=== PATIENT | male | born 1965 | race Caucasian/White ===

== ENCOUNTER 2022-04-12 17:43 | Emergency (ER) | payer OTHER, SELFPAY ==
--- NOTE | 2022-04-12 17:44 | ED.EYEPROB ---
HPI - Eye Problem General Chief complaint: Eye Problems Stated complaint: Right eye injury WC Time Seen by Provider: 04/12/22 17:44 Source: patient and RN notes reviewed History of Present Illness HPI Narrative: Patient is a 56-year-old male who presents the urgent care with complaints of right eye foreign body/injury. Patient states that he was fixing a tile in the ceiling at work and believes he may have got dust in his eye. Patient states that occurred around 5:15 PM. States that he rinsed it with water, saline and use the eyewash station at work. Patient states he still feels something rough in the eye . Patient states he is having difficulty opening the eye due to the pain. No other acute complaints. No acute distress noted. Patient aware of the plan of care. Some parts of this dictation were generated by voice recognition software and may contain typographical and/or grammatical inaccuracies. Related Data Allergies Allergy/AdvReac Type Severity Reaction Status Date / Time No Known Allergies Allergy Verified 04/12/22 18:04 Review of Systems Review of Systems: CONSTITUTIONAL: Denies fever, chills, or sweats. EYES: Reports of right eye pain, redness, drainage and possible foreign body ENT: Denies rhinorrhea, congestion, sore throat, or otalgia. CARDIOVASCULAR: Denies chest pain, palpitations, or edema. RESPIRATORY: Denies cough or dyspnea. GASTROINTESTINAL: Denies abdominal pain, nausea, vomiting, or diarrhea. GENITOURINARY: Denies dysuria or hematuria. SKIN: Denies rash or itching. MUSCULOSKELETAL: Denies back pain, joint pain, or myalgia. NEUROLOGIC: Denies headache, numbness, or weakness. All other systems reviewed are negative, except as documented in HPI. PMFSH Comments At the time of my signature, I reviewed and agree with the nursing past medical, surgical, social, and family history. There is no relevant family history pertinent to the patient complaint. Exam Narrative: GENERAL: This is a well-nourished, well-developed patient, in no apparent distress. HEAD: normocephalic, atraumatic. EYES: PERRL. Moderately injected conjunctive a on the right with injected/erythemic right sclera without obvious injury. No obvious foreign body to the right eye. Clear watery drainage from the right eye. Left sclera clear/white. Vision is grossly intact. EARS: External ears normal NOSE: External nose normal with no obvious nasal discharge, nares without redness, no rhinorrhea. THROAT: Mucous membranes moist, posterior pharynx clear. NECK: Neck supple SKIN: warm, intact with no suspicious lesions or rash, good texture and turgor. NEURO: awake, alert, and oriented to person, place and time. There were no obvious focal neurologic abnormalities. EXTREMITIES: No clubbing, cyanosis, or edema. Course Course Level of Care: Express Care Visit Vital Signs Vital signs: Vital Signs Temperature 97.4 F L 04/12/22 17:52 Pulse Rate 72 04/12/22 17:52 Respiratory Rate 20 04/12/22 17:52 Blood Pressure 123/83 04/12/22 17:52 Pulse Oximetry 97 04/12/22 17:52 Oxygen Delivery Room Air 04/12/22 17:52 Temperature 97.4 F L 04/12/22 17:52 Pulse Rate 72 04/12/22 17:52 Respiratory Rate 20 04/12/22 17:52 Blood Pressure 123/83 04/12/22 17:52 Pulse Oximetry 97 04/12/22 17:52 Oxygen Delivery Room Air 04/12/22 17:52 Reviewed Procedures FB Removal Eye Foreign Body #1: Foreign Body Removal Narrative: Topical anesthetic was instilled with good anesthesia using 1gtt of opth anesthetic agent (tetracaine). Fluorescein stain of the R/L eye was performed without uptake of dye. Corneal abrasion noted at 3 o'clock position. NO FB, ulcer or dendritic lesions. Upper lid was everted and no FB or lesions were noted. NO Bishnu sign. Normal saline irrigation eye solution was performed and the patient tolerated the procedure well, no adverse reaction or complications. Noted intraocular pressure readings. MDM
[2022-04-12 17:52] VITALS: BP 123/83; PULSE 72; RESP 20; TEMP 36.3; O2SAT 97
== END 2022-04-12 18:37 | disposition home or self-care (01) ==
PROVIDERS: Emergency Provider Nurse Practitioner Family
DX: S05.01XA Injury of conjunctiva and corneal abrasion without foreign body, right eye, initial encounter (principal); X58.XXXA Exposure to other specified factors, initial encounter
CPT/HCPCS: 99213; A9270; G0463